=== PATIENT | male | born 1945 | race African-American/Black ===

== ENCOUNTER 2025-02-24 19:55 | Inpatient (IN) | payer OTHER, MEDICAID ==
[~2025-02-24] VITALS: Ht 165.1 cm; Wt 58.1 kg
[2025-02-24] MEDS: SODIUM CHLORIDE 0.9% (SEPSIS BOLUS) IV ONE (20:08)
[2025-02-24] MEDS: NOREPINEPHRINE 8MG/250ML PMX 250 ML IV SCH (20:15)
[2025-02-24] MEDS: PIPERACILLIN/TAZO 3.375G/50ML 50 ML IV ONE (20:16)
[2025-02-24 20:43] LABS: BG BASE EXCESS -6.8 mmol/L (-2.0-3.0); BG CARBOXYHEMOGLOBIN 1.3 % (0.5-1.5); BG DEOXYHEMOGLOBIN 1.4 % (0.0-5.0); BG FLOW(L/min) 15.00 L/min; BG FRACTION INSPIRED OXYGEN 100; BG HCO3 ACT 18.9 mmol/L (21.0-28.0); BG METHEMOGLOBIN 0.1 % (0.5-1.5); BG OXYGEN SATURATION 98.6 % (94.0-98.0); BG OXYHEMOGLOBIN 97.2 % (94.0-98.0); BG PCO2 38.4 mmHg (35.0-48.0); BG PH 7.309 (7.350-7.450); BG PO2 154.0 mmHg (83.0-108.0); BG SAMPLE SITE RIGHT RADIAL; BG TOTAL HEMOGLOBIN 5.2 g/dL (13.5-17.5); BG VENT MODE MASK - NRB
[2025-02-24 20:52] LABS: BASOPHILS % 0.3 % (0.0-2.0); EOSINOPHILS % 0.3 % (0.0-5.0); INR 1.2; LYMPHOCYTES % 11.6 % (20.0-50.0); MEAN PLATELET VOLUME 8.0 fl (7.4-10.4); MONOCYTES % 2.8 % (2.0-8.0); NEUTROPHILS % 85.0 % (40.0-76.0); PLATELET 137 x1000/uL (130-400); RED BLOOD CELL COUNT 2.38 mill/uL (4.7-6.1); RED CELL DISTRIBUTION WIDTH 25.5 % (11.6-14.6)
[2025-02-24 20:56] LABS: CREATININE 0.7 mg/dL (0.6-1.3); UREA NITROGEN BLOOD 41 mg/dL (9-23)
[2025-02-24 20:57] LABS: ADD RBC MORPHOLOGY YES; HEMATOCRIT. 17.2 % (42.0-52.0); HEMOGLOBIN. 5.6 g/dL (14.0-18.0); TROPONIN I HIGH SENSITIVITY 17 ng/L (3.0-53)
[2025-02-24 20:58] LABS: ASPARTATE AMINOTRANSFERASE 16 IU/L (<34); BILIRUBIN DIRECT 0.2 mg/dL (<=3.0); BILIRUBIN TOTAL 0.4 mg/dL (0.1-1.0)
[2025-02-24 20:59] LABS: PROTEIN TOTAL 3.6 g/dL (6.0-8.3)
[2025-02-24] MEDS: VANCOMYCIN 1G PREMIX 200 ML IV ONE (21:11)
[2025-02-24 21:19] LABS: PLATELET ESTIMATE SLIGHTLY DECREASED
[2025-02-24 22:07] VITALS: PULSE 89; RESP 24; O2SAT 95
[2025-02-24] MEDS: IPRATROPIUM/ALBUTEROL 0.5-3(2.5)MG/3ML NEB HHN SCH (22:07)
[2025-02-24] MEDS ORDERED: ACETAMINOPHEN 325MG TABLET PO PRN ×2 (23:15)
[2025-02-24] MEDS ORDERED: IPRATROPIUM/ALBUTEROL 0.5-3(2.5)MG/3ML NEB HHN PRN (23:15)
[2025-02-24] MEDS ORDERED: ONDANSETRON HCL 4MG/2ML INJ IV PRN (23:15)
[2025-02-24] MEDS: MAGNESIUM 2 G PREMIX 50 ML IV NR (23:50)
[2025-02-24] MEDS: PANTOPRAZOLE SODIUM 40 MG/VIAL IV SCH (23:53)
[2025-02-25] VITALS (13 sets, daily range): BP systolic 58–100; BP diastolic 24–68; PULSE 61–91; RESP 30–32; TEMP 33.4–33.6; O2SAT 65–67
[2025-02-25] MEDS ORDERED: DEXTROSE 50% WATER 50ML SYRINGE IV PRN (00:15)
[2025-02-25] MEDS ORDERED: NOREPINEPHRINE 8MG/250ML PMX 250 ML IV PRN (00:15)
[2025-02-25] MEDS ORDERED: IPRATROPIUM/ALBUTEROL 0.5-3(2.5)MG/3ML NEB HHN PRN (00:15)
[2025-02-25] MEDS ORDERED: BLOOD SUGAR DIAGNOSTIC STRIP TEST SCH (00:15)
[2025-02-25] MEDS ORDERED: PHENYLEPHRINE 50 MG in DEXTROSE 5% WATER 250 ML IV PRN (01:45)
[2025-02-25] MEDS ORDERED: PHENYLEPHRINE 50MG/250ML PMX 250 ML IV PRN (01:45)
[2025-02-25] MEDS ORDERED: VASOPRESSIN 20 UNIT in SODIUM CHLORIDE 0.9% 99 ML IV PRN (01:45)
[2025-02-25] MEDS ORDERED: NOREPINEPHRINE 32 MG in DEXT 5% WATER 218 ML IV PRN (03:00)
[2025-02-25] MEDS ORDERED: DOPAMINE 400MG/250ML PREMIX 250 ML IV PRN (03:45)
[2025-02-25] MEDS ORDERED: DOPAMINE 800MG PREMIX (DOUBLE) 250 ML IV PRN (03:45)
[2025-02-25] MEDS ORDERED: ATROPINE SULFATE 1MG/10ML SYR IV PRN (03:45)
[2025-02-25] MEDS ORDERED: IPRATROPIUM/ALBUTEROL 0.5-3(2.5)MG/3ML NEB HHN SCH (06:00)
[2025-02-25] MEDS ORDERED: PIPERACILLIN/TAZO 3.375G/50ML 50 ML IV SCH (06:00)
[2025-02-25] MEDS ORDERED: INSULIN LISPRO 100 UNITS/ML SUBCUT SCH (08:20)
[2025-02-25] MEDS ORDERED: VANCOMYCIN 500 MG in DEXT 5% WATER 100 ML IV SCH (09:00)
== END 2025-02-25 04:30 | DRG 871 ==
LOC: ER 19:55 → CVICU 22:59 → EDBEDREQTM 23:06 → EDBEDREQ 23:06 → ENRESERV 02-25 00:39
PROVIDERS: ADMIT Internal Medicine; ATTEND Internal Medicine
PROC: 30233N1 Transfusion of Nonautologous Red Blood Cells into Peripheral Vein, Percutaneous Approach (ICD-10-PCS; 2025-02-24)
PROC: 5A0935A Assistance with Respiratory Ventilation, Less than 24 Consecutive Hours, High Flow/Velocity Cannula (ICD-10-PCS; principal; 2025-02-25)
DX: A41.9 Sepsis, unspecified organism (principal); G93.41 Metabolic encephalopathy; R65.21 Severe sepsis with septic shock; J69.0 Pneumonitis due to inhalation of food and vomit; J96.01 Acute respiratory failure with hypoxia; J90 Pleural effusion, not elsewhere classified; I46.9 Cardiac arrest, cause unspecified; E11.9 Type 2 diabetes mellitus without complications; Z66 Do not resuscitate; D50.9 Iron deficiency anemia, unspecified; I48.0 Paroxysmal atrial fibrillation; R16.1 Splenomegaly, not elsewhere classified; J98.09 Other diseases of bronchus, not elsewhere classified; Z51.5 Encounter for palliative care; Z79.899 Other long term (current) drug therapy; Z99.3 Dependence on wheelchair; Z86.718 Personal history of other venous thrombosis and embolism; Z85.72 Personal history of non-Hodgkin lymphomas; Z88.6 Allergy status to analgesic agent; Z86.711 Personal history of pulmonary embolism
CPT/HCPCS: 36415; 36430; 36600; 71045; 71250; 74176; 80048; 80076; 82375; 82805; 82962; 83605; 83735; 83880; 84145; 84484; 85025; 86850; 86900; 86920; 93005; 94070; 94640; 96365; 96367; 96368; 99291; A4606; J1265; J2470; J2543; J3373; J3475; J3490; J7030; J7060; P9016; A4315